=== PATIENT | male | born 1995 | race Caucasian/White ===

== ENCOUNTER 2018-11-06 00:14 | Emergency (ER) | payer OTHER, SELFPAY ==
[2018-11-06] MEDS ORDERED: NA CHLORIDE 0.9% 1,000 ML ONE (00:40)
[2018-11-06 00:50] LABS: Absolute Lymphocytes (CBC) 2.5 K/uL (0.7-4.9); Absolute Monocytes 0.7 K/uL (0.1-1.3); Absolute Neutrophil 4.7 K/uL (1.8-8.0); Basophils % 0.3 % (0-1.3); Eosinophils % 1.9 % (0-4.4); Hematocrit 46.8 % (39.6-49.0); Lymphocytes % 31.3 % (15.3-44.8); MPV 10.7 fL (7.6-11.3); Monocytes % 8.2 % (3.3-12.3); RBC Red Blood Cell Count 5.31 M/uL (4.33-5.43)
[2018-11-06 01:06] LABS: BUN Blood Urea Nitrogen 12 mg/dL (7-18); Bicarbonate 25 mmol/L (21-32); Glucose Level 107 mg/dL (74-106); Potassium 4.1 mmol/L (3.5-5.1); Sodium Level 143 mmol/L (136-145)
[2018-11-06 02:30] LABS: Urine Blood NEGATIVE (NEG); Urine Glucose NEGATIVE (NEG); Urine Protein NEGATIVE (NEG); Urine Specific Gravity 1.015 (1.005-1.030); Urine pH 5.5 (5.0-7.0)
[2018-11-06 02:41] LABS: Barbiturates NEGATIVE (NEGATIVE); Benzodiazepines NEGATIVE (NEGATIVE); Cocaine NEGATIVE (NEGATIVE); METHAMPHETAM NEGATIVE (NEGATIVE); Methadone NEGATIVE (NEGATIVE); Opiates NEGATIVE (NEGATIVE); Phencyclidine NEGATIVE (NEGATIVE); THC Cannibis NEGATIVE (NEGATIVE)
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
--- NOTE | 2018-11-06 08:20 | RAD REPORT ---
EXAM DESCRIPTION: RAD - Shoulder Right 2 View - 11/06/2018 1:01 am CLINICAL HISTORY: Right shoulder pain status post fall FINDINGS: No fracture or dislocation is seen.
--- NOTE | 2018-11-06 08:21 | RAD REPORT ---
EXAM DESCRIPTION: RAD - Ankle Right 3 View - 11/06/2018 1:01 am CLINICAL HISTORY: Right ankle pain status post fall FINDINGS: No fracture is seen. Borderline widening of the medial clear space may indicate an injury to the deltoid ligament and shou ld be correlated clinically.
--- NOTE | 2018-11-06 08:22 | RAD REPORT ---
EXAM DESCRIPTION: Velma Single View11/06/2018 1:01 am CLINICAL HISTORY: Chest pain COMPARISON: none FINDINGS: The lungs appear clear of acute infiltrate. The heart is normal size IMPRESSION: No acute abnormalities displayed
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
== END 2018-11-06 03:47 | disposition home or self-care (01) ==
LOC: ER 00:14
DX: S06.0X9A Concussion with loss of consciousness of unspecified duration, initial encounter (principal); S40.011A Contusion of right shoulder, initial encounter; S90.01XA Contusion of right ankle, initial encounter; V49.40XA Driver injured in collision with unspecified motor vehicles in traffic accident, initial encounter; F17.210 Nicotine dependence, cigarettes, uncomplicated
CPT/HCPCS: 36415; 70450; 71045; 71250; 72125; 72170; 80048; 80307; 80320; 81003; 85025; 86850; 86900; 86901; 96360; 96361; 99284; J7030